=== PATIENT | male | born 1980 | race American Indian/Alaskan Native ===

== ENCOUNTER 2020-08-03 01:08 | Emergency (ER) | payer SELFPAY ==
[2020-08-03 01:35] VITALS: BP 124/77
--- NOTE | 2020-08-03 02:07 | Emergency Department Report ---
Eye Injury/Foreign Body - HPI Duration: 5 Days Eye Location: Left Severity: Moderate Eye Symptoms: Eye Pain: Yes, Blurred Vision: Yes, Eye Redness: Yes, Grinding/Hammering Metal: No, Used Eye Protection: No, Contact Lens Use: No, Recalls Injury: Yes, Photophobia: No Other History: 40-year-old -[place] male presents emerged from complaining of left pain and throbbing resulting in continued infection to that region. Reports no fever, chills, sweats, no hemoptysis no hematemesis, hematochezia. ED Review of Systems ROS: Stated complaint: SWELLING/PAIN LEFT EYE Other details as noted in HPI Comment: All other systems reviewed and negative ED Past Medical Hx - Past Medical History Previous Medical History?: No - Surgical History Past Surgical History?: No - Social History Smoking Status: Current Every Day Smoker Substance Use Type: None - Medications Home Medications: Home Medications Medication Instructions Recorded Confirmed Last Taken Type Tobramycin 0.3% [Tobrex] 1 applicatio OD Q8HR #1 tube 08/03/20 Unknown Rx cephALEXin [Keflex] 500 mg PO Q8HR #30 cap 08/03/20 Unknown Rx Eye Injury Exam - Exam General: Vital signs noted. No distress. Alert and acting appropriately. Vital signs stable General: Patient is well nourished, well developed, awake and alert, resting comfortably in no acute distress Head: Normocephalic and atraumatic Eyes: Normal inspection, extraocular muscles intact, no conjunctival pallor swollen to the left eyelid with some erythema and swelling is protruding to the inner eyelid. No periorbital cellulitis. No signs of entrapment Ear, nose, throat: Normal external exam Neck: Normal range of motion Respiratory: Patient is in no respiratory distress, lungs CTAB Cardiovascular: Patient is not tachycardic, RRR without murmur appreciated GI: Abd SNT with no guarding or rebound; +BS normoactive x 4, no tympanny to percussion Back: Normal inspection of the back with good strength and range of motion throughout all ext Extremities: pulses intact with good cap refills, no LE pitting edema or calf tenderness Neuro: The patient is alert and oriented to person, place, and time, appropriately conversive, with 5/5 bilat UE/LE strength, no gross motor or sensory defects noted. Coordination appears to be adequate. Skin: Warm, dry, and intact ED Course Vital Signs 08/03/20 01:33 Temperature 97.0 F L Pulse Rate 65 Respiratory 12 Rate Blood Pressure 124/77 O2 Sat by Pulse 97 Oximetry Critical care attestation.: If time is entered above; I have spent that time in minutes in the direct care of this critically ill patient, excluding procedure time. ED Disposition Clinical Impression: Stye Disposition: [id number] TO HOME OR SELFCARE Is pt being admited?: No Does the pt Need Aspirin: No Condition: Stable Prescriptions: cephALEXin [Keflex] 500 mg PO Q8HR #30 cap Tobramycin 0.3% [Tobrex] 1 applicatio OD Q8HR #1 tube Referrals: TARA BROOKS MD [Primary Care Provider] - 3-5 Days SHELBIE ONEILL MD [Staff Physician] - 3-5 Days [facility] [Provider Group] - 3-5 Days
== END 2020-08-03 02:53 | disposition home or self-care (01) ==
LOC: ED 01:08
DX: H00.016 Hordeolum externum left eye, unspecified eyelid (principal); F17.200 Nicotine dependence, unspecified, uncomplicated; Z79.899 Other long term (current) drug therapy
CPT/HCPCS: 99282